=== PATIENT | female | born 1975 | race Caucasian/White ===

== ENCOUNTER 2017-01-03 18:55 | Outpatient (CLI) | payer SELFPAY ==
[~2017-01-03 18:55] MED LIST: CALC-260 PO; IBUP200T48 PO; OMEP20TA62 PO; PREN1TAB60 PO
== END 2017-01-03 21:52 | disposition home or self-care (01) ==
LOC: LDOP 18:55
PROVIDERS: ATTEND Obstetrics & Gynecology
DX: O09.513 Supervision of elderly primigravida, third trimester (principal); O26.893 Other specified pregnancy related conditions, third trimester; M79.604 Pain in right leg; M54.9 Dorsalgia, unspecified; O12.03 Gestational edema, third trimester; Z3A.32 32 weeks gestation of pregnancy
CPT/HCPCS: 59025; 99211; G0463

== ENCOUNTER 2017-01-19 15:27 | Outpatient (CLI) | payer SELFPAY ==
[~2017-01-19] VITALS: Ht 175.3 cm; Wt 83.6 kg
[2017-01-19 15:54] VITALS: BP 114/66
== END 2017-01-19 16:12 | disposition home or self-care (01) ==
LOC: LDOP 15:27
PROVIDERS: ATTEND Obstetrics & Gynecology
DX: O09.523 Supervision of elderly multigravida, third trimester (principal); O26.893 Other specified pregnancy related conditions, third trimester; M54.5 Low back pain; R20.0 Anesthesia of skin; Z3A.34 34 weeks gestation of pregnancy
CPT/HCPCS: 59025; 99211; G0463

== ENCOUNTER 2017-01-19 16:21 | Emergency (ER) | payer OTHER ==
[~2017-01-19] VITALS: Ht 175.3 cm; Wt 84.0 kg
[2017-01-19 16:48] VITALS: BP 115/64
[2017-01-19] MEDS ORDERED: HYDROmorphone 1 MG/ML, 1ML ONE (17:15)
[2017-01-19] MEDS ORDERED: ONDANSETRON ODT 4 MG ONE (17:30)
[2017-01-19] MEDS ORDERED: ONDANSETRON ODT 4 MG PO ONE (17:30)
[2017-01-19] MEDS ORDERED: HYDROmorphone 1 MG/ML, 1ML IM ONE (17:30)
== END 2017-01-19 18:41 | disposition home or self-care (01) ==
LOC: ED 16:46
DX: O26.893 Other specified pregnancy related conditions, third trimester (principal); M54.16 Radiculopathy, lumbar region; Z87.891 Personal history of nicotine dependence
CPT/HCPCS: 96372; 99283; J1170; Q0162

== ENCOUNTER 2017-02-06 13:36 | Outpatient (CLI) | payer OTHER ==
[~2017-02-06] VITALS: Ht 175.3 cm; Wt 83.6 kg
[2017-02-06 13:48] VITALS: BP 119/58
[2017-02-06] MEDS ORDERED: OXYC-302 PO (14:32)
[2017-02-06] MEDS ORDERED: ACET-1600 PO (14:32)
[2017-02-06 15:19] LABS: ASPARTATE AMINO TRANSFERASE 9 U/L (15-37); BLOOD UREA NITROGEN 5 mg/dL (7-18)
== END 2017-02-06 16:40 | disposition home or self-care (01) ==
LOC: LDOP 13:36
PROVIDERS: ATTEND Obstetrics & Gynecology
DX: O09.523 Supervision of elderly multigravida, third trimester (principal); O26.893 Other specified pregnancy related conditions, third trimester; R10.30 Lower abdominal pain, unspecified; O62.9 Abnormality of forces of labor, unspecified; M54.5 Low back pain; Z3A.37 37 weeks gestation of pregnancy
CPT/HCPCS: 36415; 59025; 80053; 85025; 99211; G0463

== ENCOUNTER 2017-02-18 06:01 | Inpatient (IN) | payer OTHER ==
[~2017-02-18] VITALS: Ht 175.3 cm; Wt 83.1 kg
[~2017-02-18 06:01] MED LIST changes: +ACET-1600 PO; +OXYC-302 PO
[2017-02-18] MEDS ORDERED: OXYTOCIN 30U/ 0.9% NaCL 500ML 500 ML IV ONE (06:06)
[2017-02-18 06:14] VITALS: BP 118/71
[2017-02-18] MEDS ORDERED: POTA25TA4 PO (06:22)
[2017-02-18] MEDS ORDERED: DOCU-30 PO (06:22)
[2017-02-18] MEDS ORDERED: IRON1TAB60 PO (06:22)
[2017-02-18] MEDS ORDERED: PREN-4 PO (06:22)
[2017-02-18] MEDS ORDERED: LYSI1000 PO (06:23)
[2017-02-18] MEDS ORDERED: FENTANYL PF 100 MCG/2ML IV PRN (06:30)
[2017-02-18] MEDS ORDERED: ONDANSETRON 2MG/ML, 2ML IVPush PRN (06:30)
[2017-02-18] MEDS ORDERED: FENTANYL PF 100 MCG/2ML IVPush PRN (06:30)
[2017-02-18] MEDS: LACTATED RINGERS 1,000 ML IV SCH ×5 (06:31→22:06)
[2017-02-18] MEDS ORDERED: OXYTOCIN 30U/ 0.9% NaCL 500ML 500 ML IV PRN (06:59)
[2017-02-18] MEDS ORDERED: OXYTOCIN 30U/ 0.9% NaCL 500ML 500 ML ONE ×2 (07:05→20:29)
[2017-02-18] MEDS ORDERED: LIDOCAINE 1%, 20ML ONE (07:05)
[2017-02-18] MEDS ORDERED: MISOPROSTOL 200 MCG TABLET ONE (07:05)
[2017-02-18] MEDS ORDERED: OMEP20TA62 PO (07:26)
[2017-02-18] MEDS ORDERED: CALCIUM CARBONATE 500 MG TAB.CHEW ONE (07:58)
[2017-02-18] MEDS ORDERED: CALCIUM CARBONATE 500 MG TAB.CHEW PO PRN (08:00)
[2017-02-18] MEDS ORDERED: FENTANYL/BUPIV./NS/PF 250 ML EPIDCONT SCH (08:37)
[2017-02-18] MEDS ORDERED: EPHEDRINE 50 MG/ML, 1ML IVPush PRN (09:00)
[2017-02-18] MEDS ORDERED: NALOXONE 0.4 MG/ML, 1ML IVPush PRN (09:00)
[2017-02-18] MEDS ORDERED: LACTATED RINGERS 1,000 ML IVBOLUS PRN (09:00)
[2017-02-18] MEDS ORDERED: NEWBORN KIT ONE (12:37)
[2017-02-18] MEDS ORDERED: BUTORPHANOL 1 MG/ML, 1ML IVPush PRN (13:30)
[2017-02-18] MEDS ORDERED: BUPIVACAINE/PF 0.25% ONE (13:45)
[2017-02-18] MEDS ORDERED: FENTANYL/BUPIV./NS/PF 250 ML EPIDCONT ONE ×2 (13:45→13:47)
[2017-02-18] MEDS ORDERED: BUPIVACAINE 0.25% ONE (13:47)
[2017-02-18] MEDS ORDERED: D5%-LACTATED RINGERS 1,000 ML IV SCH (15:31)
[2017-02-18] MEDS: OXYTOCIN 30U/ 0.9% NaCL 500ML 500 ML IV SCH ×4 (18:46→22:56)
[2017-02-18] MEDS ORDERED: MISOPROSTOL 200 MCG TABLET PR PRN (19:00)
[2017-02-18] MEDS ORDERED: OXYcodone/APAP 5/325MG TABLET PO PRN ×2 (19:00)
[2017-02-18] MEDS ORDERED: IBUPROFEN 600 MG TABLET ONE (19:58)
[2017-02-18] MEDS ORDERED: DOCUSATE 100 MG CAPSULE ONE (19:59)
[2017-02-18] MEDS: IBUPROFEN 600 MG TABLET PO PRN (20:02)
[2017-02-18] MEDS: DOCUSATE 100 MG CAPSULE PO PRN (20:03)
[2017-02-18 20:25] VITALS: BP 111/68
[2017-02-18] MEDS ORDERED: ONDANSETRON 4 MG TABLET PO PRN (23:30)
[2017-02-19 00:20] VITALS: BP 117/66
[2017-02-19] MEDS: OXYTOCIN 30U/ 0.9% NaCL 500ML 500 ML IV SCH ×2 (04:46→14:46)
[2017-02-19] MEDS: IBUPROFEN 600 MG TABLET PO PRN ×3 (05:24→19:32)
[2017-02-19 08:00] VITALS: BP 103/60
[2017-02-19] MEDS: OMEPRAZOLE 20 MG CAPSULE.DR PO SCH (08:27)
[2017-02-19] MEDS: PRENATAL VIT/IRON/FA 1 EACH TABLET PO SCH (08:27)
[2017-02-19] MEDS: DOCUSATE 100 MG CAPSULE PO PRN ×2 (08:27→19:33)
[2017-02-19 13:14] VITALS: BP 94/54
[2017-02-19 16:14] VITALS: BP 109/64
[2017-02-19 19:15] VITALS: BP 115/75
[2017-02-20] MEDS: OXYTOCIN 30U/ 0.9% NaCL 500ML 500 ML IV SCH ×4 (00:46→23:46)
[2017-02-20] MEDS: IBUPROFEN 600 MG TABLET PO PRN ×4 (02:33→20:20)
[2017-02-20] MEDS: DOCUSATE 100 MG CAPSULE PO PRN ×2 (08:08→20:20)
[2017-02-20] MEDS: PRENATAL VIT/IRON/FA 1 EACH TABLET PO SCH (08:08)
[2017-02-20] MEDS: OMEPRAZOLE 20 MG CAPSULE.DR PO SCH (08:08)
[2017-02-20 08:10] VITALS: BP 113/72
[2017-02-20] MEDS ORDERED: IBUP-1222 PO (14:55)
[2017-02-20] MEDS ORDERED: OXYC-302 PO (14:55)
[2017-02-20 20:15] VITALS: BP 116/71
== END 2017-02-20 22:15 | disposition home or self-care (01) | DRG 775 ==
LOC: LDIP 06:01 → 2NW 20:49
PROVIDERS: ADMIT Obstetrics & Gynecology; ATTEND Obstetrics & Gynecology
PROC: 10E0XZZ Delivery of Products of Conception, External Approach (ICD-10-PCS; principal; 2017-02-18)
PROC: 10907ZC Drainage of Amniotic Fluid, Therapeutic from Products of Conception, Via Natural or Artificial Opening (ICD-10-PCS; 2017-02-18)
PROC: 0HQ9XZZ Repair Perineum Skin, External Approach (ICD-10-PCS; 2017-02-18)
PROC: 3E033VJ Introduction of Other Hormone into Peripheral Vein, Percutaneous Approach (ICD-10-PCS; 2017-02-18)
PROC: 00HU33Z Insertion of Infusion Device into Spinal Canal, Percutaneous Approach (ICD-10-PCS; 2017-02-18)
PROC: 3E0R3CZ (ICD-10-PCS; 2017-02-18)
DX: O99.354 Diseases of the nervous system complicating childbirth (principal); G89.29 Other chronic pain; Z3A.39 39 weeks gestation of pregnancy; Z74.01 Bed confinement status; Z37.0 Single live birth; Z23 Encounter for immunization; O70.0 First degree perineal laceration during delivery
CPT/HCPCS: 36415; 85025; 86850; 86900; J3490; Q0162; J2590; J3010; J7120; J7121

== ENCOUNTER → 2017-05-13 | Outpatient (CLI) | payer OTHER ==
[~2017-05-13] MED LIST changes: +CHOL10002 PO; +DICL75TA2 PO; +DOCU-30 PO; +IBUP-1222 PO; +IRON1TAB60 PO; +LYSI1000 PO; +POTA25TA4 PO; +POTASSIUM PO; +PREN-4 PO
[2017-05-13 12:11] LABS: HEMATOCRIT 42.2 % (34.6-47.8); WHITE BLOOD COUNT 5.9 x10^3/uL (3.4-10)
== END | disposition home or self-care (01) ==
LOC: STAR 11:22
PROVIDERS: ATTEND Obstetrics & Gynecology
DX: Z30.2 Encounter for sterilization (principal); R79.89 Other specified abnormal findings of blood chemistry; Z88.8 Allergy status to other drugs, medicaments and biological substances
CPT/HCPCS: 36415; 81003; 84703; 85025

== ENCOUNTER → 2017-05-22 | Day surgery (SDC) | payer OTHER ==
[~2017-05-22] VITALS: Ht 175.3 cm; Wt 75.4 kg
[~2017-05-22] MED LIST changes: +LACTATED RINGERS 1,000 ML IV SCH
[2017-05-22 10:19] VITALS: BP 127/90
== END ==
LOC: OUT 09:54
PROVIDERS: ATTEND Obstetrics & Gynecology
DX: Z02.9 Encounter for administrative examinations, unspecified (principal)

== ENCOUNTER 2017-06-23 09:55 | Day surgery (SDC) | payer OTHER ==
[~2017-06-23] VITALS: Ht 175.3 cm; Wt 77.2 kg
[~2017-06-23 09:55] MED LIST changes: +DOCU-131 PO; -DOCU-30 PO; -LACTATED RINGERS 1,000 ML IV SCH; -LYSI1000 PO; +LYSI100010 PO
[2017-06-23] MEDS ORDERED: LACTATED RINGERS 1,000 ML IV SCH (10:34)
[2017-06-23 10:56] VITALS: BP 107/70
[2017-06-23 10:57] LABS: HCG UR OBC PASS
[2017-06-23] MEDS ORDERED: BUPIVACAINE/PF-EPI 0.25% 1:200K ONE (11:26)
[2017-06-23] MEDS ORDERED: FENTANYL PF 100 MCG/2ML ONE ×2 (11:37)
[2017-06-23] MEDS ORDERED: MIDAZOLAM 1 MG/ML, 2ML ONE (11:38)
[2017-06-23] MEDS ORDERED: KETOROLAC 30 MG/1 ML ONE (11:57)
[2017-06-23] MEDS ORDERED: DEXAMETHASONE 4 MG/ML, 1ML ONE (11:57)
[2017-06-23] MEDS ORDERED: ONDANSETRON 2MG/ML, 2ML ONE (11:57)
[2017-06-23] MEDS ORDERED: PROPOFOL 10 MG/ML, 20ML ONE (11:57)
[2017-06-23] MEDS ORDERED: ROCURONIUM 10 MG/ML ONE (11:57)
[2017-06-23] MEDS ORDERED: CEFOTETAN 2 GM ONE (11:57)
[2017-06-23] MEDS ORDERED: hydrALAzine 20 MG/ML, 1ML IV PRN (12:30)
[2017-06-23] MEDS ORDERED: FENTANYL PF 100 MCG/2ML IV PRN (12:30)
[2017-06-23] MEDS ORDERED: PROMETHAZINE 25 MG/ML, 1ML IV PRN (12:30)
[2017-06-23] MEDS ORDERED: LABETALOL 5MG/ML, 20ML IV PRN (12:30)
[2017-06-23] MEDS ORDERED: HYDROmorphone 1 MG/ML, 1ML IV PRN (12:30)
[2017-06-23] MEDS ORDERED: OXYcodone 5 MG/5 ML ORAL.SOL UDC PO PRN (12:30)
[2017-06-23] MEDS ORDERED: ACETAMINOPHEN 325 MG TABLET PO PRN (12:30)
[2017-06-23] MEDS ORDERED: MEPERIDINE/PF 25MG/0.5ML IVPush PRN (12:30)
[2017-06-23] MEDS ORDERED: ONDANSETRON 2MG/ML, 2ML IVPush PRN (12:30)
[2017-06-23] MEDS ORDERED: ACETAMINOPHEN 650 MG/20.3 ML UDC ONE (13:13)
[2017-06-23] MEDS ORDERED: OXYcodone 5 MG/5 ML ORAL.SOL UDC ONE (13:14)
== END 2017-06-23 14:55 ==
LOC: OUT 09:55
PROVIDERS: ATTEND Obstetrics & Gynecology
DX: Z30.2 Encounter for sterilization (principal)
CPT/HCPCS: 58661; 81025; 88302; J1100; J1885; J2250; J2405; J2704; J3010; J7120; S0074

== ENCOUNTER → 2018-08-10 | Outpatient (CLI) | payer OTHER ==
[~2018-08-10] MED LIST changes: -IBUP200T48 PO; +IBUP200T49 PO
== END | disposition home or self-care (01) ==
LOC: CFH 07:28
PROVIDERS: ATTEND Nurse Practitioner
DX: Z12.31 Encounter for screening mammogram for malignant neoplasm of breast (principal)
CPT/HCPCS: 77063; 77067